=== PATIENT | male | born 1990 | race African-American/Black ===

== ENCOUNTER 2018-05-01 14:39 | Emergency (ER) | payer OTHER, SELFPAY ==
[2018-05-01 14:55] VITALS: BP 137/98; PULSE 89; RESP 18; TEMP 36.8; O2SAT 98
--- NOTE | 2018-05-01 16:05 | W.ED.GENAD ---
Discharge Plan Disposition Patient Disposition: [facility] Condition: Fair Discharge Details Chief Complaint: FacialProb Clinical Impression: Foreign body in nose Primary Care Provider: Magy,Local ED Provider: Komal Rivero Home Meds and New Rx's Prescriptions: New amoxicillin-pot clavulanate [Augmentin] 875-125 mg tablet 1 tab PO BID Qty: 14 RF: 0 Continued furosemide [Lasix] 20 mg Tablet 20 mg RF: 0 lisinopril 20 mg Tablet 20 mg PO DAILY RF: 0 potassium 99 mg Tablet RF: 0 pantoprazole [Protonix] 40 mg Tablet,Delayed Release (Dr/Ec) 40 mg PO DAILY RF: 0 clonidine HCl 0.1 mg Tablet 0.1 mg RF: 0 trazodone 150 mg Tablet 150 mg PO DAILY RF: 0 methylphenidate HCl [Ritalin] 20 mg Tablet 80 mg PO DAILY RF: 0 hydroxyzine HCl 50 mg Tablet 100 mg PO HS RF: 0 hydroxyzine HCl 50 mg Tablet 50 mg PO BID RF: 0 buprenorphine-naloxone [Suboxone] 8-2 mg Film 2 film BUCCAL DAILY RF: 0 Discharge Instructions Instructions: Nasal Foreign Body in Children (ED) Additional Instructions: Encourage water intake. Take antibiotics as prescribed. If you develop fevers/chills, increased pain or other new/worsening symptoms please seek care urgently once again. Follow up with primary care as needed. Medical Decision Making Patient is a 27 year old female, brought in in police custody from retirement, with c/c of FB in right naris. He reports that while in rehab 2 weeks ago he put marijuana wrapped in plastic. He reports that he has tried ot remove this multiple times over the past 2 weeks without success. Nurse at retirement also attempted with forceps and was unable ot remove this. Denies fevers. Has discomfort at baseline associated with this, pain greatly increases with attempts at removal. On exam, patient has plastic FB lodged in the right naris, this is quite high. Was able to remove the FB with forceps, patient tolerated this well. No large amount of pus or discharge. Reassessed the nose, no bleeding, no polyps or swelling. Given the length of time this has been lodged, will treat with antibiotics. Discussed new/worsening symptoms and when to seek care urgently once again. He reports he has been constipated recently, no abdominal pain. Associates with suboxone usage, requesting dosing of stool softener here. Will give one oral dose of colace. All of his quesitons and concerns were addressed, he is in agreement wiht this plan. HPI General Mode of arrival: ambulatory. Date/Time Provider Initiated Documentation: 05/01/18 15:25. Limitations to Documentation: no limitations. Information obtained by: patient and police. History of Present Illness 27 year old M presents to the emergency department with the chief complaint of FB right naris, described as moderate, with intensity rated at 7. Quality is described as aching, and is localized to the face. Patient reports no radiation. Patient started experiencing this week(s) (2) and it has been constant. No relieving factors improve symptom(s), No exacerbating factors reported . Patient notes denies cough, fever/chills, headaches, nausea/vomiting and rash. Patient did receive the following treatments prior to arrival, other (attempts to remove by nurse at retirement) Related Data Home Medications Medication Instructions Recorded Confirmed amoxicillin-pot clavulanate 1 tab PO BID #14 tab 05/01/18 [Augmentin] buprenorphine-naloxone [Suboxone] 2 film BUCCAL DAILY 05/01/18 05/01/18 clonidine HCl 0.1 mg 05/01/18 furosemide [Lasix] 20 mg 05/01/18 hydroxyzine HCl 50 mg PO BID 05/01/18 05/01/18 hydroxyzine HCl 100 mg PO HS 05/01/18 05/01/18 lisinopril 20 mg PO DAILY 05/01/18 05/01/18 methylphenidate HCl [Ritalin] 80 mg PO DAILY 05/01/18 05/01/18 pantoprazole [Protonix] 40 mg PO DAILY 05/01/18 05/01/18 potassium 05/01/18 trazodone 150 mg PO DAILY 05/01/18 05/01/18 Previous Rx's Medication Instructions Recorded amoxicillin-pot clavulanate 1 tab PO BID #14 tab 05/01/18 [Augmentin] Allergies Allergy/AdvReac Type Severity Reaction Status Date / Time bee venom protein (honey bee) Allergy Unverified 05/01/18 15:00 General Stated Complaint: FacialProb MELANIE: 4 Review of Systems Constitutional Reports as per HPI and Denies headache(s) Eyes Reports as per HPI, Denies eye discharge and Denies irritation ENT Reports as per HPI, Denies headache(s), Denies nasal congestion, Denies nasal discharge and Reports nasal obstruction (FB in nose) Cardiovascular Reports as per HPI, Denies chest pain and Denies dyspnea Respiratory Denies dyspnea Gastrointestinal Reports as per HPI, Denies abdominal pain, Reports change in bowel habits, Reports constipation, Denies nausea and Denies vomiting Integumentary/Breasts Reports as per HPI and Denies rash Neurologic Denies headache(s) [facility] Social History Smoking/Tobacco Use Status: Current every day Exam Const General: cooperative, healthy appearing, comfortable, no acute distress, well developed and well groomed Nutritional Appearance: average body habitus and well nourished Orientation: alert and awake [facility] Head: normal to inspection, normocephalic and atraumatic Ears: hearing grossly normal bilaterally and external ears normal General nose exam: external nose normal, no nasal polyps, nasal mucous membranes and turbinates normal and other (has FB in right naris conistent with history) Face and sinus: normal facial exam, sinuses nontender and face symmetric Mouth: oral mucosae normal, lip normal, tongue normal, oropharynx normal and moist mucous membranes Teeth and gingiva: dentition normal Throat: posterior oropharynx normal, tonsils normal and uvula midline Eyes General: appearance normal, both eyes and all related structures Neck Neck: normal visual inspection, full ROM, no lymphadenopathy and no meningeal signs Resp Effort & Inspection: normal respiratory effort, able to speak in complete sentences and no respiratory distress Skin General skin exam: no rashes or lesions noted Neuro General: alert and awake Cognition: normal cognition Speech: speech normal Gait: normal gait Psych Appearance: grossly normal and well kempt Mental Status: mental status grossly normal Speech and Movement: speech and movement normal Course Vital Signs Temperature 36.8 C 05/01/18 14:55 Pulse 89 05/01/18 14:55 Respiratory Rate 18 05/01/18 14:55 Blood Pressure 137/98 H 05/01/18 14:55 Pulse Oximetry 98 05/01/18 14:55 Temperature 36.8 C 05/01/18 14:55 Temperature Source Skin 05/01/18 14:55 Pulse 89 05/01/18 14:55 Respiratory Rate 18 05/01/18 14:55 Respiratory Effort 05/01/18 14:57 Blood Pressure 137/98 H 05/01/18 14:55 Blood Pressure Position Sitting 05/01/18 14:55 Pulse Oximetry 98 05/01/18 14:55 Oxygen Delivery Method Room Air 05/01/18 14:55 Oxygen Flow Rate 0 05/01/18 14:55 Pain Level 7 05/01/18 14:55
[2018-05-01] MEDS: Docusate Sodium 100 MG CAP PO (16:14)
--- NOTE | 2018-05-01 16:15 | NUR.NOTE ---
removed f/b from nose, patient to be discharged back to [facility] Nursing Note:
--- NOTE | 2018-05-01 16:28 | ED.GENADUL_ITS ---
Discharge Plan Disposition Patient Disposition: [facility] Condition: Fair Discharge Details Chief Complaint: FacialProb Clinical Impression: Foreign body in nose Primary Care Provider: Magy,Local ED Provider: Komal Rivero Home Meds and New Rx's Prescriptions: New amoxicillin-pot clavulanate [Augmentin] 875-125 mg tablet 1 tab PO BID Qty: 14 RF: 0 Continued furosemide [Lasix] 20 mg Tablet 20 mg RF: 0 lisinopril 20 mg Tablet 20 mg PO DAILY RF: 0 potassium 99 mg Tablet RF: 0 pantoprazole [Protonix] 40 mg Tablet,Delayed Release (Dr/Ec) 40 mg PO DAILY RF: 0 clonidine HCl 0.1 mg Tablet 0.1 mg RF: 0 trazodone 150 mg Tablet 150 mg PO DAILY RF: 0 methylphenidate HCl [Ritalin] 20 mg Tablet 80 mg PO DAILY RF: 0 hydroxyzine HCl 50 mg Tablet 100 mg PO HS RF: 0 hydroxyzine HCl 50 mg Tablet 50 mg PO BID RF: 0 buprenorphine-naloxone [Suboxone] 8-2 mg Film 2 film BUCCAL DAILY RF: 0 Discharge Instructions Instructions: Nasal Foreign Body in Children (ED) Additional Instructions: Encourage water intake. Take antibiotics as prescribed. If you develop fevers/chills, increased pain or other new/worsening symptoms please seek care urgently once again. Follow up with primary care as needed. Medical Decision Making Patient is a 27 year old female, brought in in police custody from [facility], with c/c of FB in right naris. He reports that while in rehab 2 weeks ago he put marijuana wrapped in plastic. He reports that he has tried ot remove this multiple times over the past 2 weeks without success. Nurse at [facility] also attempted with forceps and was unable ot remove this. Denies fevers. Has discomfort at baseline associated with this, pain greatly increases with attempts at removal. On exam, patient has plastic FB lodged in the right naris, this is quite high. Was able to remove the FB with forceps, patient tolerated this well. No large amount of pus or discharge. Reassessed the nose, no bleeding, no polyps or swelling. Given the length of time this has been lodged, will treat with antibiotics. Discussed new/worsening symptoms and when to seek care urgently once again. He reports he has been constipated recently, no abdominal pain. Associates with suboxone usage, requesting dosing of stool softener here. Will give one oral dose of colace. All of his quesitons and concerns were addressed, he is in agreement wiht this plan. HPI General Mode of arrival: ambulatory . Date/Time Provider Initiated Documentation: 05/01/18 15:25 . Limitations to Documentation: no limitations . Information obtained by: patient and police . History of Present Illness 27 year old M presents to the emergency department with the chief complaint of FB right naris, described as moderate, with intensity rated at 7. Quality is described as aching, and is localized to the face. Patient reports no radiation. Patient started experiencing this week(s) (2) and it has been constant. No relieving factors improve symptom(s), No exacerbating factors reported . Patient notes denies cough, fever/chills, headaches, nausea/vomiting and rash. Patient did receive the following treatments prior to arrival, other (attempts to remove by nurse at [facility]) Related Data Home Medications Medication Instructions Recorded Confirmed amoxicillin-pot clavulanate 1 tab PO BID #14 tab 05/01/18 [Augmentin] buprenorphine-naloxone [Suboxone] 2 film BUCCAL DAILY 05/01/18 05/01/18 clonidine HCl 0.1 mg 05/01/18 furosemide [Lasix] 20 mg 05/01/18 hydroxyzine HCl 50 mg PO BID 05/01/18 05/01/18 hydroxyzine HCl 100 mg PO HS 05/01/18 05/01/18 lisinopril 20 mg PO DAILY 05/01/18 05/01/18 methylphenidate HCl [Ritalin] 80 mg PO DAILY 05/01/18 05/01/18 pantoprazole [Protonix] 40 mg PO DAILY 05/01/18 05/01/18 potassium 05/01/18 trazodone 150 mg PO DAILY 05/01/18 05/01/18 Previous Rx's Medication Instructions Recorded amoxicillin-pot clavulanate 1 tab PO BID #14 tab 05/01/18 [Augmentin] Allergies Allergy/AdvReac Type Severity Reaction Status Date / Time bee venom protein (honey bee) Allergy Unverified 05/01/18 15:00 General Stated Complaint: FacialProb MELANIE: 4 Review of Systems Constitutional Reports as per HPI and Denies headache(s) Eyes Reports as per HPI, Denies eye discharge and Denies irritation ENT Reports as per HPI, Denies headache(s), Denies nasal congestion, Denies nasal discharge and Reports nasal obstruction (FB in nose) Cardiovascular Reports as per HPI, Denies chest pain and Denies dyspnea Respiratory Denies dyspnea Gastrointestinal Reports as per HPI, Denies abdominal pain, Reports change in bowel habits, Reports constipation, Denies nausea and Denies vomiting Integumentary/Breasts Reports as per HPI and Denies rash Neurologic Denies headache(s) [facility] Social History Smoking/Tobacco Use Status: Current every day Exam Const General: cooperative, healthy appearing, comfortable, no acute distress, well developed and well groomed Nutritional Appearance: average body habitus and well nourished Orientation: alert and awake [facility] Head: normal to inspection, normocephalic and atraumatic Ears: hearing grossly normal bilaterally and external ears normal General nose exam: external nose normal, no nasal polyps, nasal mucous membranes and turbinates normal and other (has FB in right naris conistent with history) Face and sinus: normal facial exam, sinuses nontender and face symmetric Mouth: oral mucosae normal, lip normal, tongue normal, oropharynx normal and moist mucous membranes Teeth and gingiva: dentition normal Throat: posterior oropharynx normal, tonsils normal and uvula midline Eyes General: appearance normal, both eyes and all related structures Neck Neck: normal visual inspection, full ROM, no lymphadenopathy and no meningeal signs Resp Effort & Inspection: normal respiratory effort, able to speak in complete sentences and no respiratory distress Skin General skin exam: no rashes or lesions noted Neuro General: alert and awake Cognition: normal cognition Speech: speech normal Gait: normal gait Psych Appearance: grossly normal and well kempt Mental Status: mental status grossly normal Speech and Movement: speech and movement normal Course Vital Signs Temperature 36.8 C 05/01/18 14:55 Pulse 89 05/01/18 14:55 Respiratory Rate 18 05/01/18 14:55 Blood Pressure 137/98 H 05/01/18 14:55 Pulse Oximetry 98 05/01/18 14:55 Temperature 36.8 C 05/01/18 14:55 Temperature Source Skin 05/01/18 14:55 Pulse 89 05/01/18 14:55 Respiratory Rate 18 05/01/18 14:55 Respiratory Effort 05/01/18 14:57 Blood Pressure 137/98 H 05/01/18 14:55 Blood Pressure Position Sitting 05/01/18 14:55 Pulse Oximetry 98 05/01/18 14:55 Oxygen Delivery Method Room Air 05/01/18 14:55 Oxygen Flow Rate 0 05/01/18 14:55 Pain Level 7 05/01/18 14:55
== END 2018-05-01 16:18 | disposition home or self-care (01) ==
PROVIDERS: Emergency Provider Physician Assistant
DX: S00.35XA Superficial foreign body of nose, initial encounter (principal); X58.XXXA Exposure to other specified factors, initial encounter
CPT/HCPCS: 99283

== ENCOUNTER 2019-08-02 01:17 | Outpatient (CLI) | payer OTHER, SELFPAY ==
[2019-08-02 09:30] LABS: Abs Immature Grans 0.02 k/cumm (0.0-0.09); HCT 40.2 % (40.0-50.0); Mean Corp. HGB Concentration 32.3 g/dL (32.0-36.0); Mean Corpuscular Hemoglobin 26.6 pg (27.0-33.0); Mean Corpuscular Volume 82.4 fL (80-95); Mean Platelet Volume 12.7 fL (8.0-11.0); RBC 4.88 m/cumm (4.50-6.00); RBC Distribution Width 14.8 % (11.8-14.1); White Blood Cell Count 7.17 k/cumm (4.4-10.8)
[2019-08-02 09:33] LABS: Mono Screening Negative (Negative)
[2019-08-02 09:50] LABS: ALT 210 U/L (16-63); AST 49 U/L (15-37); Albumin 3.5 g/dL (3.4-5.0); Alkaline Phosphatase 124 U/L (46-116); Amylase 69 U/L (25-115); Anion Gap 7.1 mmol/L (3-11); BUN 13 mg/dL (7-18); Bilirubin, Total 0.3 mg/dL (0.2-1.0); C-Reactive Protein 0.17 mg/dL (0.0-0.3); CO2 28.9 mmol/L (21.0-32.0); CREATININE 1.07 mg/dL (0.70-1.30); Calcium 8.4 mg/dL (8.5-10.1); Chloride 105 mmol/L (98-107); Glucose 81 mg/dL (74-106); LDH 180 U/L (85-227); Lipase 433 U/L (73-393); Potassium 4.3 mmol/L (3.5-5.1); Sodium 141 mmol/L (136-145); TSH (W/Ref FT4) 5.72 uIU/mL (0.36-3.74); Total Protein 7.2 g/dL (6.4-8.2)
[2019-08-02 09:51] LABS: Iron 111 ug/dL (65-175); Total Iron Binding Capacity 327 ug/dL (250-450); Transferrin Sat 34 % (20-55)
[2019-08-02 09:59] LABS: Absolute Eosinophil Count 0.36 k/cumm (0.0-0.7); Absolute Lymphocyte Count 3.01 k/cumm (1.2-3.4); Absolute Monocyte Count 0.86 k/cumm (0.11-0.7); Absolute Neutrophil Count 2.94 k/cumm (1.2-6.7); Atypical Lymphocytes % 6; Diff Comment Manual Differential; Platelet Count 120 x1000/uL (130-400); Polychromasia Present
[2019-08-02 10:14] LABS: ESR 9 mm/hr (0-15)
[2019-08-02 10:16] LABS: Vitamin D 25 Total 14.3 ng/ml (30-100)
[2019-08-02 10:35] LABS: Ferritin 112 ng/mL (26-388); Vitamin B12 719 pg/mL (193-986)
[2019-08-02 11:00] LABS: FREE T4 0.95 ng/dL (0.76-1.46)
[2019-08-02 16:11] LABS: Rheumatoid Factor <8.6 IU/mL (<12.0)
[2019-08-03 10:47] LABS: Lyme Ab w Rflx to Lyme Confirm Negative (Negative); Syphilis Serology (RPR) Negative (Negative)
[2019-08-03 11:50] LABS: HIV-1/2 Ag & Ab Screen Negative (Negative)
[2019-08-03 12:02] LABS: Hepatitis C Ab w Rflx HCV PCR Reactive (Negative)
[2019-08-03 15:39] LABS: ANA Interpretation Positive (Negative); ANA Titer Pattern 1:320 Speckled
[2019-08-04 15:54] LABS: HCV RNA Detection Quantitative 3635 IU/mL (Undetected)
== END 2019-08-02 01:37 ==
PROVIDERS: Visit Provider Nurse Practitioner Adult Health
DX: B18.2 Chronic viral hepatitis C (principal); R59.0 Localized enlarged lymph nodes; M79.10 Myalgia, unspecified site; R60.0 Localized edema; K92.89 Other specified diseases of the digestive system; Z11.4 Encounter for screening for human immunodeficiency virus [HIV]
CPT/HCPCS: 36415; 80053; 82306; 83690; 85652; 86803; 87389; 82150; 82607; 82728; 82746; 83540; 83550; 83615; 84439; 84443; 85025; 86038; 86140; 86308; 86431; 86592; 86618; 87522